=== PATIENT | male | born 1970 | race Hispanic/Latino ===

== ENCOUNTER 2017-02-02 03:28 | Emergency (ER) | payer BC, SELFPAY ==
[2017-02-02] MEDS ORDERED: Lidocaine 1% 20 ML MDV ONE (04:30)
[2017-02-02] MEDS ORDERED: Bacitracin Zinc 1 Packet ONE (04:46)
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
== END 2017-02-02 05:05 | disposition home or self-care (01) ==
LOC: NAV ERS 03:28
DX: S01.01XA Laceration without foreign body of scalp, initial encounter (principal); S51.012A Laceration without foreign body of left elbow, initial encounter; F17.210 Nicotine dependence, cigarettes, uncomplicated; X99.0XXA Assault by sharp glass, initial encounter
CPT/HCPCS: 12001; 70450; J2001